=== PATIENT | female | born 1955 | race Caucasian/White ===

== ENCOUNTER → 2024-04-18 | Outpatient (CLI) | payer MEDICARE, MEDICAID, SELFPAY ==
--- NOTE | 2024-04-18 13:19 | ART_ITS ---
Reason For Study: Ulcer Procedure A bilateral lower extremity continuous wave Doppler with analog waveform analysis,segmental pressures,and ankle brachial indexes without exercise. Left Segmental Pressures Left brachial= 141mmHg. Left thigh = 63mmHg. Left calf = 53mmHg. Left posterior tibial artery = 50mmHg. Left dorsalis pedis artery = 37mmHg. Left digit = 0.58 mmHg. The left dorsalis pedis waveforms are monophasic. The left posterior tibial artery waveforms are monophasic. Right Segmental Pressures Right brachial= 151mmHg. Right thigh = 86mmHg. Right calf = 73mmHg. Right posterior tibial artery = 71mmHg. Right dorsalis pedis artery = 76mmHg. Right digit = 64 mmHg. The right dorsalis pedis waveforms are monophasic. The right posterior tibial artery waveforms are monophasic. Indices The right ankle brachial index by the dorsalis pedis is 0.50. The right ankle brachial index by the posterior tibial artery is 0.47. The right digital-brachial index is 0.42. The left ankle brachial index by the dorsalis pedis is 0.25. The left ankle brachial index by the posterior tibial artery is 0.33. The left digital-brachial index is 0.58. VL/Lower Ext Art Exam w/o Exercis Interpretation Summary Right LINH 0.50, moderate arterial insufficiency. Doppler/PVR waveforms and segm ental pressures reveal [id number] femoral disease. Left LINH 0.33, severe arterial insufficiency. Doppler/PVR waveforms and segment al pressures reveal [id number] femoral disease. Ordering Physician: Alexa Phillips Referring Physician: Katia Marsh Performed By: Abby Peralta RVT and Student
--- NOTE | 2024-04-18 13:19 | CDU_ITS ---
Reason For Study: Carotid bruit Rt. Velocities/BP Lt. Velocities/BP Prox CCA 66.4/14.5 cm/sec. Prox CCA 73/18.2 cm/sec. Mid CCA 68.3/14.5 cm/sec. Mid CCA 72.1/22 cm/sec. Dist CCA 71.1/15.4 cm/sec. Dist CCA 58.9/17.3 cm/sec. Prox ICA 97.1/22.3 cm/sec. Prox ICA 657/300.8 cm/sec. Mid ICA 83.9/21.2 cm/sec. Mid ICA 110.1/22.5 cm/sec. Dist ICA 66.3/20.4 cm/sec. Dist ICA 55.3/22.5 cm/sec. Rt. ICA/CCA = 1.42. Lt. ICA/CCA = 9.11. Prox ECA 71.1/6.9 cm/sec. Prox ECA 78.4/4.7 cm/sec. Rt. Vert. 27.7/8.8 cm/sec. Lt. Vert. 48/9.7 cm/sec. Right Extracranial There is heterogeneous, irregular atherosclerotic plaque noted in the right common carotid artery. There is heterogeneous, irregular atherosclerotic plaque noted in the right internal carotid artery. There is heterogeneous, irregular atherosclerotic plaque noted in the right external carotid artery. Antegrade flow is noted in the right vertebral artery. Left Extracranial There is homogeneous, smooth atherosclerotic plaque noted in the left common carotid artery. There is heterogeneous, irregular atherosclerotic plaque noted in the left internal carotid artery. There is heterogeneous, irregular atherosclerotic plaque noted in the left external carotid artery. Antegrade flow is noted in the left vertebral artery. Procedure Carotid Duplex [id number]. This is a Carotid Duplex examination using B-mode, color flow and specral Doppler. Exam performed in department. VL/Carotid Duplex Ultrasound Interpretation Summary Mild (<50%) stenosis right extracranial internal carotid. Severe (>70%) stenosis left extracranial internal carotid. Patent and antegrade vertebrals bilaterally. Ordering Physician: Alexa Phillips Referring Physician: Katia Marsh Performed By: Abby Peralta RVT
== END | disposition home or self-care (01) ==
LOC: CVS 13:16
PROVIDERS: PCP Internal Medicine; Referring Provider Physician Assistant; Visit Provider Physician Assistant
DX: I73.9 Peripheral vascular disease, unspecified (principal); R09.89 Other specified symptoms and signs involving the circulatory and respiratory systems
CPT/HCPCS: 93880; 93923